=== PATIENT | male | born 1960 | race Caucasian/White ===

== ENCOUNTER → 2023-11-11 | Outpatient (CLI) | payer BC ==
--- NOTE | 2023-11-11 14:57 | P.SLEEP ---
History of Present Illness H&P Date: 11/11/23 This is a 63-year-old male patient with known history of obstructive sleep apnea. His last evaluation was approximately 8 years ago. The patient was diagnosed having severe EILEEN with an AHI of 42 and the patient was being treated with a CPAP pressure of 11 cm of water. He is using the original machine that he was given many years back which is a [employer] older generation. The patient is coming in and is interested in updating his CPAP unit. He is also using a Mirage Quatro fullface mask, medium size. Unfortunately, a full compliancy cannot be obtained from his machine. This is an older unit. Nevertheless, I was able to retrieve some formation. The patient is using the machine on average of 7 hours and 54 minutes and he is compliant and is committed to long-term CPAP therapy. The patient has a body mass index of 36.5. His current [place] score is at 17 specially when he does not use the machine. While on the treatment, he is still feeling somewhat somnolent and sleepy. He has occasional snoring. Denies quitting breathing in the middle of the night. He is using a fullface mask and is waking up with a dry mouth as the humidification system and his machine is not functioning properly. He is going to bed at around 8 PM waking up at 4:30 AM in the morning and is averaging 8 hours in bed. He has some issues with concentration and memory and he has become symptomatic while on this current machine. Obviously, the machine needs to be updated. No other new onset comorbid conditions. He is known to have hypertension and needs blood pressure is remaining stable. He is currently on Tirzepatide for weight loss. He has also history of depression which is cu rrently inactive and stable and the patient is on Prozac 10 mg p.o. daily. No anxiety. No panic attacks. No heartburn. No nighttime shortness of breath or chest pain. Does not fall asleep while driving his car. No history of any motor vehicle accidents because of feeling drowsy or sleepy. No reported restlessness in his lower extremities. No substance abuse. No alcoholism. Review of Systems Constitutional: Reports daytime sleepiness, Reports fatigue Eyes: denies as per HPI, denies blurred vision, denies bulging eye, denies decreased vision, denies diplopia, denies discharge, denies dry eye, denies irritation, denies itching, denies pain, denies photophobia, denies loss of peripheral vision, denies loss of vision, denies tunnel vision/blind spots Ears: deny: decreased hearing, ear discharge, earache, tinnitus Ears, nose, mouth and throat: Reports as per HPI Breasts: absent: as per HPI, gynecomastia Cardiovascular: Reports as per HPI Respiratory: Reports sleep apnea, Reports snoring Gastrointestinal: Reports as per HPI Genitourinary: Reports as per HPI Musculoskeletal: Reports as per HPI Musculoskeletal: absent: ankle pain, ankle stiffness, ankle swelling, as per HPI, elbow pain, elbow stiffness, elbow swelling, foot pain, foot stiffness, foot swelling, hand pain, hand stiffness, hand swelling, hip pain, hip stiffness, hip swelling, knee pain, knee stiffness, knee swelling, shoulder pain, shoulder stiffness, shoulder swelling, wrist pain, wrist stiffness, wrist swelling Integumentary: Reports as per HPI Neurological: Reports as per HPI Psychiatric: Reports as per HPI Endocrine: Reports as per HPI Hematologic/Lymphatic: Reports as per HPI Allergic/Immunologic: Reports as per HPI Past Medical History Past Medical History: Hypertension, Sleep Apnea/CPAP/BIPAP History of Any Multi-Drug Resistant Organisms: None Reported Past Surgical History: No Surgical Hx Reported Past Anesthesia/Blood Transfusion Reactions: No Reported Reaction Past Psychological History: Depression Smoking Status: Never smoker Past Alcohol Use History: None Reported Past Drug Use History: None Reported Medications and Allergies Home Medications and Allergies Comment(s): Tirzepatide injections once a week and Prozac 10 mg p.o. daily Physical Exam BP is 125/78 with a pulse of 63 and respiration of 18 and a temperature is 97.9. Weight is 277 pounds. BMI 36.5. [place] score is at 17. Neck size 18 inches. Height is 6 feet and 1 inch. The pulse ox is 97% on room air oxygen. The size of the neck is 18 inches General appearance the patient is obese, comfortable not in acute distress. Head exam was generally normal. There was no scleral icterus or corneal arcus. Mucous membranes were moist. Neck was supple and without jugular venous distension, thyromegaly, or carotid bruits. Carotids were easily palpable bilaterally. There was no adenopathy. The patient has Mallampati class IV with significant crowding of the posterior pharynx. Lungs are clear to auscultation and percussion. Cardiac exam reveals the PMI to be normally sized and situated. Rhythm is regular. First and second heart sounds normal. No murmurs, rubs or gallops. Abdominal exam reveals normal bowel sounds, no masses, no organomegaly and no aortic enlargement. Extremities are nonedematous and both femoral and pedal pulses are normal. Examination of the skin revealed no evidence of significant rashes, suspicious appearing nevi or other concerning lesions. Neurologically, the patient is awake and alert and the patient does not have any focal neurological deficit. Cranial nerves are essentially intact. Assessment and Plan Plan: Symptomatic obstructive sleep apnea, diagnosed many years back, and the patient is known to have severe disease with an AHI of 42 maintained on CPAP pressure of 11 cm of water. He has an older generation [employer] unit and the patient has become more symptomatic over the years and is interested in reevaluation and updating his CPAP unit Obesity with a BMI of 36.5 Chronic hypersomnia [place] score of 17 Depression Hypertension Plan The patient is committed to long-term CPAP therapy. The patient has utilized CPAP therapy for many years and the patient is hoping to update his CPAP unit. I think is reasonable to reevaluate this patient with a home sleep study to reestablish diagnosis and severity and following that the patient is going to be given a CPAP unit, preferably an APAP unit pressures of 10/20 cm of water and I am also recommending an AirFit F20 fullface mask medium size. The patient will be encouraged to lose weight. Optimize sleep hygiene measures. Maintain regul ar sleep schedule and the patient will see him back after obtaining his new CPAP machine for a compliancy check. Sleep Note - Sleep Note Sleep Note: Temperature: Pulse Rate: Respiratory Rate: Blood Pressure: SpO2: Height: Weight: BMI: Neck Circumference:
== END ==
LOC: 3 N SLEEP 14:10
PROVIDERS: ATTEND Internal Medicine Critical Care Medicine
DX: G47.33 Obstructive sleep apnea (adult) (pediatric) (principal); E66.9 Obesity, unspecified; G47.10 Hypersomnia, unspecified; F32.A Depression, unspecified; I10 Essential (primary) hypertension; Z68.36 Body mass index [BMI] 36.0-36.9, adult
CPT/HCPCS: 99202

== ENCOUNTER → 2023-12-02 | Outpatient (CLI) | payer BC ==
--- NOTE | 2023-12-15 20:04 | P.PCN ---
Date of Procedure: 12/02/23 Operative Findings: Home sleep study report Date of services 12/02/2023 Pertinent history Symptomatic obstructive sleep apnea, diagnosed many years back, and the patient is known to have severe disease with an AHI of 42 maintained on CPAP pressure of 11 cm of water. He has an older generation [employer] unit and the patient has become more symptomatic over the years and is interested in reevaluation and updating his CPAP unit. Obesity with a BMI of 36.5. Chronic hypersomnia [place] score of 17. Comorbid conditions include depression hypertension Pertinent physical findings The body mass index is 36.5 Technical description The [employer] apnea link system was used to complete this type III home sleep study. The total recording duration was 7 hours and 53 minutes. The study started at 8:51 PM and the study ended at 4:44 AM. There was a total of 7 hours and 6 minutes of flow monitoring and 7 hours and 40 minutes of oxygen saturation monitoring. Results Respiratory analysis showed a total of 115 obstructive apneas and 103 obstructive hypopneas. Resulting AHI was 30.6 consistent with severe obstructive sleep apnea Oxygenation analysis The patient had a total of 159 oxygen saturations with a pulse ox dropping more than 4%. The baseline pulse ox while awake was 96%, average pulse ox during sleep was 93%, lowest pulse ox of 87%. No major desaturations below 88% Cardiac analysis Average heart rate was 59 beats a minute, with a minimum heart rate of 50 and a maximum heart rate of 87 Assessment Severe symptomatic EILEEN with an AHI of 30. No significant nocturnal oxygen saturations Chronic hypersomnia with an [place] score of 17 Depression Hypertension Obesity with a BMI of 36.5 Plan Will provide the patient a CPAP unit. The patient will be offered an APAP unit pressures of 10/20 cm of water. The patient will be given a AirFit F20 fullface mask medium size. Encourage efforts to lose weight. Maintain good sleep hygiene measures. See me in the office in 30 to 90 days to assess clinical response and compliancy. Patient is committed to long-term CPAP therapy. His CPAP machine will be updated. Will continue to follow.
== END ==
LOC: 3 N SLEEP 16:49
PROVIDERS: ATTEND Internal Medicine Critical Care Medicine
DX: G47.33 Obstructive sleep apnea (adult) (pediatric) (principal); G47.10 Hypersomnia, unspecified; I10 Essential (primary) hypertension; F32.A Depression, unspecified; E66.9 Obesity, unspecified; Z68.36 Body mass index [BMI] 36.0-36.9, adult